=== PATIENT | female | born 1945 | race Caucasian/White ===

== ENCOUNTER 2025-03-26 13:00 | Outpatient (CLI) | payer MEDICARE, BC | END 2025-03-26 13:01 | disposition home or self-care (01) | LOC: RAD 13:00 | PROVIDERS: ATTEND Preventive Medicine Public Health & General Preventive Medicine | DX: M54.50 Low back pain, unspecified (principal); M25.551 Pain in right hip; M47.816 Spondylosis without myelopathy or radiculopathy, lumbar region | CPT/HCPCS: 72100; 72220 ==